=== PATIENT | female | born 1975 | race African-American/Black ===

== ENCOUNTER 2021-12-11 15:14 | Emergency (ER) | payer BC, MEDICAID ==
[~2021-12-11] VITALS: Ht 165.1 cm; Wt 86.0 kg
[2021-12-11] MEDS ORDERED: ACETAMINOPHEN 325MG TABLET PO ONE (16:30)
[2021-12-11 17:56] LABS: CLARITY URINE CLEAR (CLEAR); COLOR URINE YELLOW (YELLOW); KETONES URINE NEGATIVE (NEGATIVE); LEUKOCYTE ESTERASE URINE 3+ (NEGATIVE); NITRITE URINE NEGATIVE (NEGATIVE); OCCULT BLOOD URINE 2+ (NEGATIVE); PH URINE 6.5 (4.5-8.0); PROTEIN URINE TRACE (NEGATIVE); UROBILINOGEN URINE 0.2 E.U./dL (0.2-1.0)
[2021-12-11] MEDS ORDERED: IBUP-2028 MT (18:05)
[2021-12-11] MEDS ORDERED: NITR-87 MT (18:05)
[2021-12-11 18:18] VITALS: BP 123/81
== END 2021-12-11 18:18 | disposition home or self-care (01) ==
LOC: ER 15:14
DX: N39.0 Urinary tract infection, site not specified (principal); F14.10 Cocaine abuse, uncomplicated; F12.10 Cannabis abuse, uncomplicated; Z96.659 Presence of unspecified artificial knee joint; Z88.5 Allergy status to narcotic agent
CPT/HCPCS: 81003; 81025; 87077; 87186; 99283